=== PATIENT | male | born 1940 | race Caucasian/White ===

== ENCOUNTER 2016-07-05 10:43 | Emergency (ER) | payer OTHER ==
[2016-07-05] MEDS ORDERED: OPTIRAY 350 100 ML VIAL HMH IV ONE (10:44)
[2016-07-05] MEDS ORDERED: LABETALOL 100 MG/20 ML VIAL ONE (11:23)
[2016-07-05] MEDS ORDERED: METOPROLOL XL 50 MG TAB PO ONE (16:15)
== END 2016-07-05 22:11 | disposition other institution (70) ==
LOC: ER 10:43
DX: I67.1 Cerebral aneurysm, nonruptured (principal); I10 Essential (primary) hypertension; Z87.891 Personal history of nicotine dependence
CPT/HCPCS: 36415; 70450; 70496; 70498; 85025; 85652; 96374; 96376; 99285; Q9967